=== PATIENT | female | born 1990 | race American Indian/Alaskan Native ===

== ENCOUNTER 2019-08-10 17:21 | Emergency (ER) | payer SELFPAY ==
--- NOTE | 2019-08-10 17:31 | Event Note ---
ED Screening Note ED Screening Note: palpitations that began this morning no CP states she feels SOB no pleuritic CP nausea no vomiting or diarrhea no leg swelling no recent travel or surgery states she is on control pill PMHx thyroid cancer s/p thyroid resection in June 2017, she is on synthyroid LNMP: 2-3 weeks ago This initial assessment/diagnostic orders/clinical plan/treatment(s) is/are subject to change based on patients health status, clinical progression and re- assessment by fellow clinical providers in the ED. Further treatment and workup at subsequent clinical providers discretion. Patient/guardian urged not to elope from the ED as their condition may be serious if not clinically assessed and managed. Initial orders include: labs, EKG
[2019-08-10 17:37] VITALS: BP 152/90
[2019-08-10 17:59] LABS: Basophils % (Auto) 0.3 % (0.0-1.8); Eosinophils % (Auto) 0.4 % (0.0-4.3); Hematocrit 39.2 % (30.3-42.9); Hemoglobin 13.5 gm/dl (10.1-14.3); Lymphocytes # (Auto) 1.9 K/mm3 (1.2-5.4); Mean Corpuscular HGB Conc 34 % (30-34); Mean Corpuscular Volume 86 fl (79-97); Monocytes # (Auto) 0.7 K/mm3 (0.0-0.8); Monocytes % (Auto) 10.1 % (0.0-7.3); Platelet Count 230 K/mm3 (140-440); Red Blood Count 4.57 M/mm3 (3.65-5.03); Red Cell Distribution Width 13.9 % (13.2-15.2)
[2019-08-10 18:19] LABS: Alanine Aminotransferase 34 units/L (7-56); Albumin 4.3 g/dL (3.9-5); BUN/Creatinine Ratio 14; Blood Urea Nitrogen 7 mg/dL (7-17); Calcium 9.4 mg/dL (8.4-10.2); Hemolysis Index 2
[2019-08-10 18:46] LABS: Bilirubin,Urine NEG (Negative); Blood,Urine NEG (Negative); Color,Urine Straw (Yellow); Mucus,Urine FEW /HPF; Protein,Urine <15 mg/dL mg/dL (Negative); Urobilinogen,Urine < 2.0 mg/dL (<2.0); WBC,Urine < 1.0 /HPF (0.0-6.0)
[2019-08-10 18:53] LABS: Amphetamine Screen,Urine PRESUMPTIVE NEGATIVE; Benzodiazepines Screen,Urine PRESUMPTIVE NEGATIVE; Cannabinoid Screen,Urine PRESUMPTIVE NEGATIVE; Cocaine Screen,Urine PRESUMPTIVE NEGATIVE; Methadone Screen,Urine PRESUMPTIVE NEGATIVE; Opiate Screen,Urine PRESUMPTIVE NEGATIVE
--- NOTE | 2019-08-10 19:53 | Emergency Department Report ---
ED General Adult HPI - General Chief complaint: Dizziness Stated complaint: SOB/WEAKNESS/LIGHTHEADED Time Seen by Provider: 08/10/19 17:28 Source: patient Mode of arrival: Ambulatory Limitations: No Limitations - History of Present Illness Initial comments: Patient is 29 years old female with history of thyroid cancer status post surgery on levothyroxine 225 mcg daily. Patient presented to the ER complaining of 3 days history of anxiety, palpitation tremors. Patient stated that she is going through a lot of stress. She stated that [place] and she does not have a physician yet. Patient denied any chest pain or shortness of breath. Patient also denied any lower extremity swelling. No fever or chills - Related Data Allergies Allergy/AdvReac Type Severity Reaction Status Date / Time Iodine and Iodide Containing Allergy Vomiting Verified 08/10/19 17:27 Produc ED Review of Systems ROS: Stated complaint: SOB/WEAKNESS/LIGHTHEADED Other details as noted in HPI Comment: All other systems reviewed and negative Constitutional: denies: chills, fever Respiratory: denies: cough, shortness of breath, SOB with exertion, wheezing Cardiovascular: palpitations. denies: chest pain Gastrointestinal: denies: abdominal pain, nausea, vomiting, diarrhea, constipation, hematemesis, melena, hematochezia Neurological: denies: headache, weakness, numbness, paresthesias, confusion, abnormal gait Psychiatric: anxiety. denies: depression, auditory hallucinations, visual hallucinations, homicidal thoughts, suicidal thoughts ED Past Medical Hx - Past Medical History Previous Medical History?: Yes Hx Psychiatric Treatment: Yes (Anxiety, depression) Additional medical history: Thyroid CA - Surgical History Past Surgical History?: Yes Hx Cholecystectomy: Yes Additional Surgical History: Thyroidectomy - Social History Smoking Status: Current Every Day Smoker Substance Use Type: None ED Physical Exam - General Limitations: No Limitations General appearance: alert, in no apparent distress, anxious - Head Head exam: Present: atraumatic, normocephalic, normal inspection - Eye Eye exam: Present: normal appearance, PERRL - ENT ENT exam: Present: normal exam, normal orophraynx, mucous membranes moist - Neck Neck exam: Present: normal inspection. Absent: tenderness, meningismus - Respiratory Respiratory exam: Present: normal lung sounds bilaterally - Cardiovascular Cardiovascular Exam: Present: regular rate, normal rhythm, normal heart sounds. Absent: tachycardia - GI/Abdominal GI/Abdominal exam: Present: soft, normal bowel sounds. Absent: distended, tenderness, guarding, rebound, rigid, organomegaly, mass, bruit, pulsatile mass, hernia - Extremities Exam Extremities exam: Present: normal inspection, full ROM, normal capillary refill. Absent: tenderness, pedal edema, joint swelling, calf tenderness - Back Exam Back exam: Present: normal inspection, full ROM. Absent: CVA tenderness (R), CVA tenderness (L) - Neurological Exam Neurological exam: Present: alert, oriented X3, CN II-XII intact, normal gait, reflexes normal. Absent: motor sensory deficit - Psychiatric Psychiatric exam: Present: normal mood, anxious. Absent: flat affect, manic, homicidal ideation, suicidal ideation - Skin Skin exam: Present: warm, intact, normal color ED Course Vital Signs 08/10/19 17:34 Temperature 98.4 F Pulse Rate 106 H Respiratory 20 Rate Blood Pressure 152/90 [Left] O2 Sat by Pulse 97 Oximetry ED Medical Decision Making - Lab Data Result diagrams: 08/10/19 17:45 08/10/19 17:45 - EKG Data -: EKG Interpreted by Ok EKG shows normal: sinus rhythm Rate: normal - EKG Data Interpretation: no acute changes - Medical Decision Making Patient is 29 years old female with history of thyroid cancer status post surgery on levothyroxine 225 mcg daily. Patient presented to the ER complaining of 3 days history of anxiety, palpitation tremors. Patient stated that she is going through a lot of stress. She stated that she recently [place] from [place] and she does not have a physician yet. Patient denied any chest pain or shortness of breath. Patient also denied any lower extremity swelling. No fever or chills. Patient remained stable in the ER. Labs reviewed and showed elevated thyroid level with decreased TSH. Patient advised to follow-up with her [employer] supervisor in the next 2 to 3 days to adjust her medication. Patient stated that Vistaril helped her last time when she have the symptoms so she was given prescription for Vistaril. Patient given [facility] to follow-up. Patient advised to return to the ER if her symptoms are not improved. Critical care attestation.: If time is entered above; I have spent that time in minutes in the direct care of this critically ill patient, excluding procedure time. ED Disposition Clinical Impression: Palpitation, Hyperthyroidism, Acute anxiety Disposition: DC- TO HOME OR SELFCARE Is pt being admited?: No Condition: Stable Instructions: Hyperthyroidism (ED), Anxiety (ED) Referrals: [facility] [Provider Group] - 3-5 Days
== END 2019-08-10 20:18 | disposition home or self-care (01) ==
LOC: ED 17:21
DX: E05.90 Thyrotoxicosis, unspecified without thyrotoxic crisis or storm (principal); R00.2 Palpitations; F41.9 Anxiety disorder, unspecified; F32.9 Major depressive disorder, single episode, unspecified; F17.200 Nicotine dependence, unspecified, uncomplicated; Z90.49 Acquired absence of other specified parts of digestive tract; Z91.041 Radiographic dye allergy status
CPT/HCPCS: 36415; 80053; 80307; 81001; 82550; 83735; 84100; 84439; 84443; 84484; 84703; 85025; 85379; 93005; 93010

== ENCOUNTER 2019-10-13 20:34 | Emergency (ER) | payer MEDICAID ==
--- NOTE | 2019-10-13 21:54 | XRay Report ---
CHEST 2 VIEWS INDICATION / CLINICAL INFORMATION: Dry cough x 4 days. COMPARISON: None available. FINDINGS: SUPPORT DEVICES: None. HEART / MEDIASTINUM: No significant abnormality. LUNGS / PLEURA: No significant pulmonary or pleural abnormality. No pneumothorax. ADDITIONAL FINDINGS: No significant additional findings. IMPRESSION: 1. No acute findings. Signer Name: David Boyce MD Signed: 10/13/2019 9:50 PM Workstation Name: [id number]
--- NOTE | 2019-10-13 22:19 | Emergency Department Report ---
- General Chief Complaint: Upper Respiratory Infection Stated Complaint: COUGH/CP Time Seen by Provider: 10/13/19 21:35 Source: patient Mode of arrival: Ambulatory Limitations: No Limitations - History of Present Illness Initial Comments: Patient is a 29-year-old female who presents the emergency room with complaints of a dry cough that began 4 days ago. She states that she has chest discomfort after frequent coughing but otherwise does not have chest pain. She denies any fever, nausea, vomiting, diarrhea, sore throat, ear pain, shortness of breath. She states that her daughter was recently diagnosed with bilateral pneumonia and she was concerned for COVID 19 and wanted to make sure she did not have PNA. She has a past medical history of thyroid cancer and is on Synthroid. No allergies to medications. - Related Data Previous Rx's Medication Instructions Recorded Last Taken Type hydrOXYzine PAMOATE [Vistaril] 25 mg PO QHS #7 capsule 08/10/19 Unknown Rx Allergies Allergy/AdvReac Type Severity Reaction Status Date / Time Iodine and Iodide Containing Allergy Vomiting Verified 08/10/19 17:27 Produc ED Review of Systems ROS: Stated complaint: COUGH/CP Other details as noted in HPI Comment: All other systems reviewed and negative ED Past Medical Hx - Past Medical History Previous Medical History?: Yes Hx Psychiatric Treatment: Yes (Anxiety, depression) Additional medical history: Thyroid CA - Surgical History Past Surgical History?: Yes Hx Cholecystectomy: Yes Additional Surgical History: Thyroidectomy - Social History Smoking Status: Current Every Day Smoker - Medications Home Medications: Home Medications Medication Instructions Recorded Confirmed Last Taken Type hydrOXYzine PAMOATE [Vistaril] 25 mg PO QHS #7 capsule 08/10/19 Unknown Rx ED Physical Exam - General Limitations: No Limitations General appearance: alert, in no apparent distress - Head Head exam: Present: atraumatic, normocephalic - Eye Eye exam: Present: normal appearance - ENT ENT exam: Present: normal orophraynx, mucous membranes moist, TM's normal bilaterally, normal external ear exam - Respiratory Respiratory exam: Present: normal lung sounds bilaterally. Absent: respiratory distress, wheezes, rales, rhonchi, stridor, chest wall tenderness, accessory muscle use, decreased breath sounds, prolonged expiratory - Cardiovascular Cardiovascular Exam: Present: regular rate, normal rhythm, normal heart sounds. Absent: systolic murmur, diastolic murmur, rubs, gallop - Neurological Exam Neurological exam: Present: alert, oriented X3 - Psychiatric Psychiatric exam: Present: normal affect, normal mood - Skin Skin exam: Present: warm, dry, intact ED Course Vital Signs 10/13/19 22:27 Temperature 98.5 F Pulse Rate 76 Respiratory 16 Rate Blood Pressure 112/75 O2 Sat by Pulse 96 Oximetry ED Medical Decision Making - Radiology Data Radiology results: report reviewed CHEST 2 VIEWS INDICATION / CLINICAL INFORMATION: Dry cough x 4 days. COMPARISON: None available. FINDINGS: SUPPORT DEVICES: None. HEART / MEDIASTINUM: No significant abnormality. LUNGS / PLEURA: No significant pulmonary or pleural abnormality. No pneumothorax. ADDITIONAL FINDINGS: No significant additional findings. IMPRESSION: 1. No acute findings. Signer Name: David Boyce MD Signed: 10/13/2019 9:50 PM Workstation Name: [id number] Transcribed By: MICHAEL Dictated By: David Boyce MD Electronically Authenticated By: David Boyce MD Signed Date/Time: 10/13/192149 DD/ 48 TD/TT: - Medical Decision Making Patient is a 29-year-old female who presents the emergency room with complaints of a dry cough that began 4 days ago. She states that she has chest discomfort after frequent coughing but otherwise does not have chest pain. She denies any fever, nausea, vomiting, diarrhea, sore throat, ear pain, shortness of breath. She states that her daughter was recently diagnosed with bilateral pneumonia and she was concerned for COVID 19 and wanted to make sure she did not have PNA. She has a past medical history of thyroid cancer and is on Synthroid. No allergies to medications. Vitals are normal, afebrile, no tachycardia, normal oxygen saturation. Breath sounds are clear bilaterally, no wheezing, no rales, no rhonchi. Chest x-ray: 1. No acute findings. Patient is afebrile, no hypoxia, no signs of pneumonia on chest x-ray, does not meet admission or testing criteria for this hospital. Discussed supportive care and symptomatic treatment with patient. Discussed strict return precautions. Discussed self quarantine with patient. Advised patient May take Claritin or Zyrtec [id number]. May use Flonase nasal spray. May use a nighttime Robitussin to take at night. Drink warm tea, eat warm soup broth, use a humidifier. Follow-up with a primary care doctor. Return to the emergency room immediately for any new or worsening symptoms including but not limited to shortness of breath, difficulty breathing, high fevers not controlled by Tylenol, unable to tolerate by mouth intake, severe chest pain, etc. Will need to self quarantine for 2 weeks. Please do not go out in public. If at home around others please wear a mask. If you need to cough or sneeze please do so in a napkin immediately throw it away and wash your hands. Frequently wash hands. Wipe down everything that you have touched. - Differential Diagnosis URI, PNA, allergic rhinitis, allergies, GERD, COVID-19 Critical care attestation.: If time is entered above; I have spent that time in minutes in the direct care of this critically ill patient, excluding procedure time. ED Disposition Clinical Impression: Dry cough Disposition: DC-01 TO HOME OR SELFCARE Is pt being admited?: No Does the pt Need Aspirin: No Condition: Stable Instructions: COVID-19, Acute Cough (ED) Additional Instructions: May take Claritin or Zyrtec [id number]. May use Flonase nasal spray. May use a nighttime Robitussin to take at night. Drink warm tea, eat warm soup broth, use a humidifier. Follow-up with a primary care doctor. Return to the emergency room immediately for any new or worsening symptoms including but not limited to shortness of breath, difficulty breathing, high fevers not controlled by Tylenol, unable to tolerate by mouth intake, severe chest pain, etc. Will need to self quarantine for 2 weeks. Please do not go out in public. If at home around others please wear a mask. If you need to cough or sneeze please do so in a napkin immediately throw it away and wash your hands. Frequently wash hands. Wipe down everything that you have touched. Referrals: ANNEMARIE MONDRAGON MD [Primary Care Provider] - 2-3 Days Time of Disposition: 22:21 Print Language: INDONESIAN
[2019-10-13 22:28] VITALS: BP 112/75
== END 2019-10-13 22:33 | disposition home or self-care (01) ==
LOC: ED 20:34
DX: R07.89 Other chest pain (principal); R05 Cough; F41.9 Anxiety disorder, unspecified; F32.9 Major depressive disorder, single episode, unspecified; Z90.49 Acquired absence of other specified parts of digestive tract; F17.200 Nicotine dependence, unspecified, uncomplicated; Z85.850 Personal history of malignant neoplasm of thyroid
CPT/HCPCS: 71046